=== PATIENT | female | born 1960 | race Caucasian/White ===

== ENCOUNTER 2023-12-29 06:56 | Inpatient (IN) | payer OTHER, SELFPAY ==
[2023-12-29] VITALS (20 sets, daily range): BP systolic 108–148; BP diastolic 51–78; PULSE 89–131; RESP 11–24; TEMP 36.9–37.3; O2SAT 75–95; BMI 24.7; BMI 26.9
--- NOTE | 2023-12-29 06:52 | ECG_ITS ---
APPROVED REPORT Exam: Resting ECG HR:131 bpm ECG Measurements Heart Rate 131 AXES ND 152 P 61 QRSd 79 QRS 47 QT 333 T 61 QTc 410 Conclusion SINUS TACHYCARDIA Some motion artifact noted Electronically signed by : EL OROZCO, 12/31/2023 02:07:57
--- NOTE | 2023-12-29 06:58 | CT_ITS ---
PROCEDURE INFORMATION: Exam: CTA Chest With Contrast Exam date and time: 12/29/2023 6:31 AM Age: 63 years old Clinical indication: Shortness of breath; Prior surgery; Surgery date: 1-6 months; Surgery type: Cervical spine; Additional info: Sob/tachy/hypoxic TECHNIQUE: Imaging protocol: Computed tomographic angiography of the chest with contrast. Exam focused on the arteries. 3D rendering (Not supervised by radiologist): MIP and/or 3D reconstructed images were created by the technologist. Radiation optimization: All CT scans at this facility use at least one of these dose optimization techniques: automated exposure control; mA and/or kV adjustment per patient size (includes targeted exams where dose is matched to clinical indication); or iterative reconstruction. Contrast material: ISOVUE 370; Contrast volume: 75 ml; Contrast route: INTRAVENOUS (IV); COMPARISON: No relevant prior studies available. FINDINGS: Limitations: Moderate motion artifact. Pulmonary arteries: Suboptimal pulmonary artery opacification. No definite vascular intraluminal filling defects to suggest large or central acute pulmonary embolism. Aorta: Atherosclerotic tortuosity and calcification of the thoracic aorta. No aortic aneurysm or dissection. Thyroid: Small bilateral parathyroid clips. Lungs: Bilateral multifocal pneumonia with more extensive right middle and lower lobe consolidation. Upper lung zone and biapical emphysema. Anatomic variant azygous lobe and fissure. Pleural spaces: Minimal right pleural effusion. No pneumothorax. Heart: Heart size upper limits of normal. Coronary arteries: Coronary artery calcifications. Lymph nodes: Small nonspecific mediastinal lymph nodes. Gallbladder and bile ducts: Dilated common hepatic duct and upstream intrahepatic ducts. Adrenal glands: Small circumscribed low-attenuation bilateral adrenal nodules or adenomas measuring up to 2 cm. Bones/joints: Cervicothoracic posterior fusion metallic hardware in place. Thoracic spondylosis and degenerative bony changes. Old posterior right 11th and 12th rib fractures. Soft tissues: No significant soft tissue abnormalities. IMPRESSION: 1. No definite vascular intraluminal filling defects to suggest large or central acute pulmonary embolism. A small or peripheral PE cannot be excluded. 2. Bilateral multifocal pneumonia with more extensive right middle and lower lobe consolidation. Consider short-term follow-up imaging to document clearance. 3. Upper lung zone and biapical emphysema. 4. Minimal right pleural effusion. 5. Atherosclerotic vascular disease including coronary artery disease. 6. Dilated common hepatic duct and upstream intrahepatic ducts. Recommend correlation with LFTs. COMMENTS: The presence of pulmonary emphysema on CT is an independent risk factor for lung cancer. In the absence of a history or active diagnosis of lung cancer, it is recommended that this patient with emphysema be evaluated for enrollment in a low dose CT lung cancer screening program.
--- NOTE | 2023-12-29 07:05 | PC.NURSE ---
Dr. Stringer at bedside
--- NOTE | 2023-12-29 07:06 | [facility].EDCP ---
Discharge Plan Disposition Chief Complaint: Chest Pain Clinical Impressions Clinical Impression: Severe sepsis, Acute hypoxemic respiratory failure, Multifocal pneumonia Discharge ED Provider: Luis Armando Stringer HPI General Chief Complaint: Chest Pain Stated Complaint: CP Time Seen by Provider: 12/29/23 06:58 History of Present Illness HPI narrative: Patient is a 63-year-old female with past medical history of COPD not on home oxygen, chronic back pain status post spinal surgery in August on multimodal pain control including oral morphine, tizanidine, hypertension, hyperlipidemia, GERD who presents to the emergency department for evaluation of shortness of breath. Patient has had intermittent cough over the last week or so, however this morning woke up with severe shortness of breath. Patient does not have any complaints of chest pain however does have discomfort upon deep inspiration. Due to persistent shortness of breath she presents here for continued evaluation. Patient had a fever Tmax 100.4 at home and took Tylenol. No abdominal pain, no dysuria. Related Data Allergies Allergy/AdvReac Type Severity Reaction Status Date / Time Sulfa (Sulfonamide Allergy Verified 12/29/23 07:12 Antibiotics) [facility] Disclaimer: The information contained in this section may have been updated after the patient was seen, as this information can be updated by other users. Social History Smoking Status: Never smoker alcohol intake: never current occupational status: previously employed Travel in the last 8 weeks: None ROS Obtained: Yes Systems reviewed as appropriate & no additional complaints except as documented Physical Exam General General appearance: alert and in no apparent distress Head Head exam: atraumatic and normocephalic Eye Eye exam: Present EOMI ENT ENT exam: Present mucous membranes moist Neck Neck exam: Present normal inspection Chest Chest inspection: Present normal inspection and symmetric chest wall rise Respiratory Respiratory exam: Present normal lung sounds bilaterally and prolonged expiratory phase (Tachypnea); Absent respiratory distress Cardiovascular Cardiovascular exam: Present regular rate and normal rhythm Abdominal Exam Abdominal exam: Present soft; Absent tenderness Extremities Exam Extremities exam: Present normal inspection Neurological Exam Neurological exam: Present alert Psychiatric Psychiatric exam: Present normal affect Skin Skin exam: Present warm and dry HEART Score HEART Score HEART Score assessment performed?: Yes History (anamnesis): Slightly suspicious ECG: Normal Age: >65 years Risk factors: 3 or more risk factors Troponin: </= normal limit HEART Score: 4 Critical Care Critical Care Time Critical Care Time: Yes Attestation: On 12/29/23, the high probability of a clinically significant, sudden or life threatening deterioration of the following system(s) required my full and direct attention, intervention and personal management. The time I documented below is in addition to time spent performing reported procedures but includes the following listed in this critical care notation. Total Time Total Critical Care Time: 35 Medical Decision Making Dieudonne Inquiry Pt receiving controlled substance: No Vital Signs Vital Signs: 12/29/23 07:05 12/29/23 07:14 12/29/23 07:16 Temperature 98.4 F Temperature Source Oral Pulse Rate 117 H Pulse Rate [Right Radial] 131 H Respiratory Rate 24 18 Blood Pressure 121/57 L Blood Pressure [Left Arm] 148/70 H Blood Pressure Mean [Left Arm] 96 Blood Pressure Source [Left Arm] Automatic Cuff Blood Pressure Position [Left Arm] Sitting 02 Sat by Pulse Oximetry 75 L 89 L 89 L Oxygen Delivery Method Room Air Nasal Cannula Nasal Cannula Oxygen Flow Rate (LPM) 4 5 12/29/23 07:48 12/29/23 08:00 12/29/23 08:30 Temperature Temperature Source Pulse Rate 106 H 102 H 116 H Pulse Rate [Right Radial] Respiratory Rate 19 20 21 Blood Pressure 127/75 108/51 L 119/72 Blood Pressure [Left Arm] Blood Pressure Mean [Left Arm] Blood Pressure Source [Left Arm] Blood Pressure Position [Left Arm] 02 Sat by Pulse Oximetry 88 L 95 89 L Oxygen Delivery Method Nasal Cannula Nasal Cannula Nasal Cannula Oxygen Flow Rate (LPM) 4 6 6 12/29/23 09:00 Temperature Temperature Source Pulse Rate 112 H Pulse Rate [Right Radial] Respiratory Rate 23 Blood Pressure 116/61 Blood Pressure [Left Arm] Blood Pressure Mean [Left Arm] Blood Pressure Source [Left Arm] Blood Pressure Position [Left Arm] 02 Sat by Pulse Oximetry 87 L Oxygen Delivery Method Nasal Cannula Oxygen Flow Rate (LPM) 6 Lab Data Labs: Lab Results 12/29/23 07:00: WBC 10.5, RBC 4.39, Hgb 10.8 L, Hct 35.8 L, MCV 81.5, MCH 24.7 L, MCHC 30.3 L, RDW 15.6, Plt Count 360, MPV 8.6, Neut % (Auto) 84.0 H, Lymph % (Auto) 10.6, [place] % (Auto) 3.6, Eos % (Auto) 1.2, Baso % (Auto) 0.7, Neut # (Auto) 8.8 H, Lymph # (Auto) 1.1, [place] # (Auto) 0.4, Eos # (Auto) 0.1, Baso # (Auto) 0.1, Sodium 144, Potassium 4.1, Chloride 110 H, Carbon Dioxide 25, Anion Gap 13.1, BUN 25 H, Creatinine 1.20 H, Estimated Creat Clear 47, Estimated GFR 45 L, Est GFR ( Amer) 55 L, Glucose 104 H, Lactate 2.0, Calcium 8.6, Total Bilirubin 0.3, AST 26, ALT 17, Alkaline Phosphatase 77, Troponin I < 0.01, Total Protein 6.8, Albumin 4.3, Globulin 2.5, Albumin/Globulin Ratio 1.7 12/29/23 07:05: VBG pH 7.34, VBG pCO2 40.8, VBG pO2 40.6 H, VBG HCO3 21.5 L, VBG Total CO2 22.7 L, VBG O2 Saturation 70.2 H, VBG Base Excess -4.3 L 12/29/23 07:20: SARS-CoV-2 (PCR) Not detected, Influenza A Untype (PCR) Not detected, Influenza Type B (PCR) Not detected 12/29/23 07:30: VBG Lactic Acid 2.9 H 12/29/23 07:00 12/29/23 07:00 Response Orders (Tests/Meds): ED MEDICATIONS Generic Name Dose Route Start Last Admin Trade Name Freq PRN Reason Stop Dose Admin Acetaminophen 650 mg 12/29/23 08:36 Acetaminophen 325mg Tab PO 01/28/24 08:35 Q4HP PRN Fever or Mild Pain (1-3) Heparin Sodium (Porcine) 5,000 unit 12/29/23 08:45 Heparin Sodium 5,000 Unit/Ml Vial SQ 01/28/24 08:44 Q8H SHAI Ceftriaxone Sodium 1 gm/ 50 mls @ 100 mls/hr 12/29/23 07:00 12/29/23 08:02 Sodium Chloride IV 01/08/24 06:59 100 mls/hr Q24H SHAI Administration Lactated Ringer's 1,000 mls @ 750 mls/hr 12/29/23 07:30 12/29/23 07:15 Lactated Ringer's 1000 Ml Bag IV 12/29/23 09:29 750 mls/hr .Q1H20M SHAI Administration Vancomycin HCl 1,000 mg/ 250 mls @ 125 mls/hr 12/29/23 08:45 Sodium Chloride IV 01/08/24 08:44 Q24H SHAI Morphine Sulfate 30 mg 12/29/23 09:00 Morphine 30mg Extended Release Tab PO 01/28/24 08:59 BID SHAI Polyethylene Glycol 17 gm 12/29/23 09:00 Polyethylene Glycol 3350 17 Gm Packet PO 01/28/24 08:59 DAILY SHAI Senna/Docusate Sodium 1 tab 12/29/23 09:00 Sennosides 8.6mg/Docusate 50mg Tablet PO 01/28/24 08:59 BID SHAI Discontinued Medications Generic Name Dose Route Start Last Admin Trade Name Freq PRN Reason Stop Dose Admin Albuterol/Ipratropium 3 ml 12/29/23 07:36 12/29/23 08:03 Ipratropium/Albuterol 3 Ml Neb IH 12/29/23 07:37 3 ml ONCE ONE Administration Azithromycin 500 mg/ Sodium 250 mls @ 250 mls/hr 12/29/23 07:30 12/29/23 08:42 Chloride IV 12/29/23 08:29 250 mls/hr ONCE ONE Administration Iopamidol 75 ml 12/29/23 07:42 12/29/23 07:43 Iopamidol-370 (76%);100ml Bottle IV 12/29/23 07:43 75 ml ONCE ONE Administration Methylprednisolone Sodium Succinate 125 mg 12/29/23 07:30 12/29/23 07:15 Methylprednisolone Sod Succ 125mg Vial IV 12/29/23 07:31 125 mg ONCE ONE Administration Miscellaneous 1 each 12/29/23 08:45 Vancomycin Consult Request NOTAPPLIC 01/28/24 08:44 [facility]SULT [facility] Morphine Sulfate 4 mg 12/29/23 08:08 12/29/23 08:13 Morphine 4mg/Ml Syringe IV 12/29/23 08:09 4 mg ONCE ONE Administration Sodium Chloride 10 ml 12/29/23 07:42 12/29/23 07:43 Sodium Chloride 0.9% 10ml Syr (Rad Only) IV 12/29/23 07:43 10 ml ONCE ONE Administration Sodium Chloride 40 ml 12/29/23 07:42 12/29/23 07:42 0.9 % Sodium Chloride 50 Ml Vial IV 12/29/23 07:43 40 ml ONCE ONE Administration ORDERS Category Date Time Status CTA Chest [CT angio chest PE protocol] Stat Cat Scan 12/29/23 06:58 Completed POCUS Point of Care (ER Only) Stat Exams 12/29/23 07:16 Ordered CBC w/Auto Diff [Complete Blood Count Auto Diff] Stat Lab 12/29/23 07:00 Completed CMP [Comprehensive Metabolic Panel] Stat Lab 12/29/23 07:00 Completed Complete Blood Count Auto Diff AMLAB Lab 12/30/23 06:00 Ordered Comprehensive Metabolic Panel AMLAB Lab 12/30/23 06:00 Ordered Lactate Venous Stat Lab 12/29/23 07:30 Completed Lactic Acid Stat Lab 12/29/23 07:00 Completed Magnesium AMLAB Lab 12/30/23 06:00 Ordered Rapid PCR Covid and Flu A/B Stat Lab 12/29/23 07:20 Completed Trop I [Troponin I] Stat Lab 12/29/23 07:00 Completed Troponin I Q3H Lab 12/29/23 10:00 Ordered Troponin I Q3H Lab 12/29/23 13:00 Ordered Blood Culture Stat Micro 12/29/23 07:52 Received VBG [Venous Blood Gas] Stat RT 12/29/23 07:05 Completed ECG Data Tracing #1: ECG Narrative: Independently interpreted by me, rate is 131, rhythm is regular, axis is normal, no ST elevation in anatomical contiguous leads, QTc 410. Sinus tachycardia. MDM Narrative Medical Decision Narrative: In summary patient is a 63-year-old female with past medical history described above who presents to the emergency department for evaluation of shortness of breath. Patient is hemodynamically stable upon arrival, significant tachycardia, hypoxic requiring 5 L nasal cannula for saturations greater than 88%, afebrile status post Tylenol administration at home. Differential diagnosis includes sepsis secondary to pneumonia, sepsis secondary to bacteremia, pulmonary embolism, among others. Patient does have good air movement disproportionate to her degree of hypoxia, no significant wheezing. She has no reported history of heart failure. Initial workup will be conducted with hematologic labs, EKG, emergent CT pulmonary embolism protocol. Initial interventions include ceftriaxone, azithromycin, sepsis crystalloid bolus with lactated Ringer's. Initial workup reviewed by me, hematologic labs with no significant leukocytosis, elevated lactate, normal blood pH, slightly elevated creatinine. Initial troponin below detectable limit. CT imaging informally interpreted by me, no saddle embolism, there is motion artifact, right-sided pneumonia, some groundglass opacities in the left lower lobe diffuse emphysema. CT imaging formal read no proximal pulmonary embolism, multifocal pneumonia, minimal right pleural effusion, incidental dilated common hepatic duct. Patient does not have cholestatic pattern or abdominal pain that warrants further workup or imaging at this time. Given sepsis secondary pneumonia with acute hypoxic respiratory failure the case was discussed with hospital medicine regarding management patient will be admitted to their service for continued evaluation at this time.
--- NOTE | 2023-12-29 07:10 | PC.NURSE ---
Radiology notified Dr. Stringer wants to forego waiting on labs prior to ct scan
[2023-12-29] MEDS: METHYLPREDNISOLONE SOD SUCC 125MG VIAL 125 MG IV (07:15)
[2023-12-29] MEDS: LACTATED RINGERS 1000ML 1,000 ML 750 ML IV (07:15)
[2023-12-29 07:20] LABS: Basophils # 0.1 K/mm3 (0-0.2); Basophils % 0.7 % (0.1-2.0); Eosinophils # 0.1 K/mm3 (0.0-0.4); Eosinophils % 1.2 % (0.1-12.0); Hematocrit 35.8 % (37.0-47.0); Hemoglobin 10.8 g/dL (12.2-16.2); Lymphocytes # 1.1 K/mm3 (0.7-4.5); Lymphocytes % 10.6 % (10-50); Mean Corpuscular HGB Conc 30.3 g/dL (31.8-35.4); Mean Corpuscular Hemoglobin 24.7 pg (27.0-31.2); Mean Corpuscular Volume 81.5 fl (81-99); Mean Platelet Volume 8.6 fl (7.4-10.4); Monocytes # 0.4 K/mm3 (0.1-1.0); Monocytes % 3.6 % (1.7-9.3); Neutrophils # 8.8 K/mm3 (1.8-7.8); Platelet Count 360 K/mm3 (142-424); Red Blood Count 4.39 M/mm3 (4.20-5.40); Red Cell Distribution Width 15.6 % (11.5-17.5); White Blood Count 10.5 K/mm3 (4.8-10.8)
--- NOTE | 2023-12-29 07:24 | PC.NURSE ---
Respiratory notified of VBG order, blood in lab
[2023-12-29 07:26] LABS: Coronavirus 19, PCR Not Detected (NotDetected); Influenza A, PCR Not Detected (NotDetected); Influenza B, PCR Not Detected (NotDetected)
[2023-12-29 07:26] LABS: Alanine Aminotransferase 17 U/L (12-78); Albumin Level 4.3 g/dl (3.5-5.0); Albumin/Globulin Ratio 1.7 (1.1-1.8); Alkaline Phosphatase 77 U/L (38-126); Anion Gap 13.1 mEq/L (5-15); Aspartate Amino Transferase 26 U/L (14-36); Bilirubin,Total 0.3 mg/dl (0.2-1.3); Blood Urea Nitrogen 25 mg/dl (7-17); Calcium 8.6 mg/dl (8.4-10.2); Carbon Dioxide 25 mmol/L (22.0-30.0); Chloride 110 mmol/L (98-107); Creatinine Clearance Estimated 47 mL/min (50-200); Estimated Glomerular Filt Rate 45 ml/min (>60); GFR (African American) 55 ML/MIN (>60); Globulin 2.5 g/dL (1.3-3.2); Glucose 104 mg/dl (74-100); Potassium 4.1 mmoL/L (3.5-5.1); Sodium 144 mmol/L (136-145); Total Protein,Serum 6.8 g/dl (6.3-8.2)
[2023-12-29 07:30] LABS: VBG Base Excess -4.3 mmol/L (-2.4-2.3); VBG HCO3 21.5 mmol/L (23-30); VBG Oxygen Saturation 70.2 % (50-70); VBG PCO2 40.8 mmol/L (35-51); VBG PH 7.34 mmol/L (7.31-7.41); VBG PO2 40.6 mmol/L (28-40); VBG Total CO2 22.7 mmol/L (23-27)
[2023-12-29 07:31] LABS: Lactate Venous 2.9 mmol/L (0.4-2.0)
[2023-12-29 07:38] LABS: Troponin I < 0.01 ng/ml (0.00-0.034)
[2023-12-29] MEDS: 0.9 % SODIUM CHLORIDE 50 ML VIAL 40 ML IV (07:42)
[2023-12-29] MEDS: SODIUM CHLORIDE 0.9% 10ML SYR (RAD ONLY) 10 ML IV (07:43)
[2023-12-29] MEDS: IOPAMIDOL-370 (76%);100ML BOTTLE 75 ML IV (07:43)
[2023-12-29] MEDS: CEFTRIAXONE 1 GM 1 GM in 0.9 % SODIUM CHLORIDE 50 ML IV (08:02)
[2023-12-29] MEDS: IPRATROPIUM/ALBUTEROL 3 ML NEB IH ×3 (08:03→22:55)
[2023-12-29] MEDS: MORPHINE 4MG/ML SYRINGE 4 MG IV (08:13)
--- NOTE | 2023-12-29 08:23 | PC.NURSE ---
pts oxygen is currently on 6lnc due to low saturation of 83% now is 88%
--- NOTE | 2023-12-29 08:30 | PC.NURSE ---
Pt provided with breakfast tray
--- NOTE | 2023-12-29 08:33 | PC.NURSE ---
DR GLORIA SPEAKING WITH DR PURDY FOR ADMISSION
--- NOTE | 2023-12-29 08:36 | PC.NURSE ---
[facility] NOTIFIED OF ADMISSION. NO BEDS AVAILABLE, PT WILL BOARD IN ED
--- NOTE | 2023-12-29 08:36 | EXP.HP ---
History of Present Illness *Admission Date: 12/29/23 *Reason for visit:: shortness of breath *History of present illness: Ms. Antonio is a 63-year-old female with history of hypertension, chronic back pain, chronic opiate therapy and COPD.. She presented to the ER with complaint of shortness of breath and fever. States that she is post cervical spinal surgery in August and has surgery on thoracic and lumbar spine pending for January. She was worried about her breathing and fever and came into the ER for evaluation because she wants to be healthy for surgery next month. States that she has had an intermittent cough for the past week or so. Denies any nausea or vomiting. Denies any chest pain. Does not use oxygen at home. Reports that things worsened acutely however when she woke up this morning with severe shortness of breath and noted to have a fever at home to 100.4. On evaluation in the ER, found to be hypoxic necessitating supplemental oxygen. Currently on 4 to 5 L. Also found to be tachycardic, tachypneic, labs concerning for elevated white cell count. Chest imaging with finding of right lower lobe consolidation and airspace disease. Initiated on antibiotics for community-acquired pneumonia. Medicine consulted for admission and further management. For the time of my evaluation, patient is feeling somewhat better. She has had fluids and IV antibiotics. Cultures were obtained. Sats are in the low 90s on 5 L. Alert and oriented x 4. Pain stable. Denies any weakness or dizziness. [facility] Disclaimer: The information contained in this section may have been updated after the patient was seen, as this information can be updated by other users. Medical History (Updated 12/29/23 @ 16:46 by Parth Lozano MD) Hypertension Chronically on opiate therapy Emphysema/COPD Family History (Updated 12/29/23 @ 15:15 by Liz Brewer RN) Other Family history of cancer Social History (Updated 12/29/23 @ 15:16 by Liz Brewer RN) Smoking Status: Former smoker alcohol intake: never current occupational status: previously employed Travel in the last 8 weeks: None Meds Home Medications and Allergies Home Medications Medication Instructions Recorded Confirmed Type amlodipine 10 mg tablet 10 mg PO DAILY High Blood Pressure 12/29/23 12/29/23 History esomeprazole magnesium 40 mg 40 mg PO TID Acid Reflux 12/29/23 12/29/23 History capsule,delayed release furosemide 20 mg tablet 20 mg PO DAILYP PRN Fluid 12/29/23 12/29/23 History hydroxyzine HCl 10 mg tablet 10 mg PO HSP PRN Anxiety 12/29/23 12/29/23 History lisinopril 20 mg tablet 20 mg PO DAILY High Blood Pressure 12/29/23 12/29/23 History morphine 30 mg tablet,extended 30 mg PO Q12HP PRN Moderate Pain 12/29/23 12/29/23 History release (Scale Score 5-6) simvastatin 20 mg tablet 20 mg PO HS 12/29/23 12/29/23 History trazodone 50 mg tablet 100 mg PO HS Insomnia 12/29/23 12/29/23 History New Prescriptions to Start Prescriptions: Allergies Allergy/AdvReac Type Severity Reaction Status Date / Time Sulfa (Sulfonamide Allergy Verified 12/29/23 07:12 Antibiotics) Exam Data for Last 24 hours Vital signs and Labs for Last 24 Hours: Temp Pulse Resp BP Pulse Ox O2 Del Method O2 Flow Rate 98.4 F 102 H 8 L 108/51 L 95 Nasal Cannula 6 12/29/23 07:05 12/29/23 08:00 12/29/23 08:00 12/29/23 08:00 12/29/23 08:00 12/29/23 08:00 12/29/23 08:00 Laboratory Results - last 24 hr 12/29/23 07:00: WBC 10.5, RBC 4.39, Hgb 10.8 L, Hct 35.8 L, MCV 81.5, MCH 24.7 L, MCHC 30.3 L, RDW 15.6, Plt Count 360, MPV 8.6, Neut % (Auto) 84.0 H, Lymph % (Auto) 10.6, [place] % (Auto) 3.6, Eos % (Auto) 1.2, Baso % (Auto) 0.7, Neut # (Auto) 8.8 H, Lymph # (Auto) 1.1, [place] # (Auto) 0.4, Eos # (Auto) 0.1, Baso # (Auto) 0.1, Sodium 144, Potassium 4.1, Chloride 110 H, Carbon Dioxide 25, Anion Gap 13.1, BUN 25 H, Creatinine 1.20 H, Estimated Creat Clear 47, Estimated GFR 45 L, Est GFR ( Amer) 55 L, Glucose 104 H, Lactate 2.0, Calcium 8.6, Total Bilirubin 0.3, AST 26, ALT 17, Alkaline Phosphatase 77, Troponin I < 0.01, Total Protein 6.8, Albumin 4.3, Globulin 2.5, Albumin/Globulin Ratio 1.7 12/29/23 07:05: VBG pH 7.34, VBG pCO2 40.8, VBG pO2 40.6 H, VBG HCO3 21.5 L, VBG Total CO2 22.7 L, VBG O2 Saturation 70.2 H, VBG Base Excess -4.3 L 12/29/23 07:20: SARS-CoV-2 (PCR) Not detected, Influenza A Untype (PCR) Not detected, Influenza Type B (PCR) Not detected 12/29/23 07:30: VBG Lactic Acid 2.9 H I & O for Last 24 hours: Intake & Output 12/26/23 12/27/23 12/28/23 12/30/23 23:59 23:59 23:59 00:59 Weight 63.503 kg Constitutional Constitutional: no acute distress, average body habitus and cooperative Comments: Ill-appearing *Routine HEENT Exam Head: Present normocephalic Eye: Present EOMI and PERRL ENT: Present mucous membranes moist *Routine Neck Exam Neck: Present supple; Absent lymphadenopathy *Routine Respiratory Exam Respiratory: Present crackles (Diffusely in posterior lung marte but worse in right lower lung field), diminished air movement and normal respiratory effort; Absent rhonchi or wheezes *Routine Cardiovascular Exam Cardiovascular: Present tachycardia; Absent murmur *Routine Abdominal Exam Abdominal: Present soft and normoactive bowel sounds; Absent tenderness *Routine Rectal Exam Rectal:: deferred *Routine Genitalia Exam Genitalia:: deferred *Routine Extremities Exam Extremities: Absent cyanosis, clubbing or edema *Routine Skin Exam Skin: Present warm; Absent rash *Routine Neurological Exam Neurological: Present alert, oriented X3 and moving all extremities; Absent altered mental status Assessment and Plan *Assessment and plan (1) Severe sepsis: Status: Acute Category: Medical Code(s): A41.9 - Sepsis, unspecified organism; R65.20 - Severe sepsis without septic shock (2) Acute hypoxemic respiratory failure: Status: Acute Category: Medical Code(s): J96.01 - Acute respiratory failure with hypoxia (3) Multifocal pneumonia: Status: Acute Category: Medical Code(s): J18.9 - Pneumonia, unspecified organism (4) Chronically on opiate therapy: Status: Acute Category: Medical Code(s): Z79.891 - jail (current) use of opiate analgesic (5) Hypertension: Status: Chronic Category: Medical Code(s): I10 - Essential (primary) hypertension (6) Emphysema/COPD: Status: Chronic Category: Medical Code(s): J43.9 - Emphysema, unspecified Plan 63-year-old female meeting severe sepsis criteria with tachypnea, tachycardia, chest imaging with multifocal pneumonia. Workup in the ER concerning for new oxygen requirement of 6 L. Acute hypoxemic respiratory failure. Discussed case with ER physician, request admission for treatment of her severe sepsis, IV antibiotics, and further management. Medicine agreed to admit. Continue IV antibiotics with broad-spectrum vancomycin, ceftriaxone, azithromycin. Given location of pneumonia predominantly right lower lobe, concern for aspiration component. Will consult pulmonology to get them involved tomorrow morning. Necessitating inpatient admission. PSI/port score 115 (Age 63, female, pulse 130 on presentation, pH 7.34, partial pressure oxygen 48, pleural effusion on chest imaging), class IV risk. Problems addressed as follows: Severe sepsis Acute hypoxemic respiratory failure Multifocal pneumonia -Supplemental oxygen for goal sats greater 90%, currently on 6 L -Personally reviewed chest imaging with CT, multifocal pneumonia, right lower lung/lobe with significant airspace disease. -Received azithromycin and ceftriaxone in the ER, continue broad-spectrum antibiotics with ceftriaxone and vancomycin. Given right lower lobe consolidation, concern for component of aspiration. -Pulmonology consulted, appreciate their recommendations -DuoNebs every 6 hours scheduled -Blood cultures pending - White cell count normal at 10.5 neutrophil predominance, 84% neutrophils. -Tylenol 650 mg as needed every 6 hours for fever pain -Status post IV fluids in the ER. Mild DIANE, creatinine 1.2, BUN greater than 20. Monitor with repeat CBC, CMP, magnesium ordered for the morning. Anticipate improvement with IV fluid resuscitation. Hypertension: Holding amlodipine, resume lisinopril 20 mg daily. Holding simvastatin nightly. Holding diuretic GERD: Continue home PPI Anxiety: New home hydroxyzine nightly as needed and trazodone nightly for insomnia. Chronic pain and chronic opiate therapy -Continue home extended release morphine 30 mg twice daily. Monitor for sedation and respiratory suppression. Full code Regular diet Heparin subcu 3 times daily
[2023-12-29] MEDS: AZITHROMYCIN 500 MG in 0.9 % SODIUM CHLORIDE 250 ML 250 MG IV (08:42)
--- NOTE | 2023-12-29 08:46 | EXP.PHA.CONS ---
Pharmacy Consult Date: 12/29/23 Time: 08:47 Referring provider: DR PURDY Reason for Consult:: VANCOMYCIN DOSING CONSULT Allergies Allergy/AdvReac Type Severity Reaction Status Date / Time Sulfa (Sulfonamide Allergy Verified 12/29/23 07:12 Antibiotics) New Prescriptions to Start Prescriptions: Height: 1.6 m Weight: 63.503 kg Laboratory Results:: Laboratory Results - last 24 hr 12/29/23 07:00: WBC 10.5, RBC 4.39, Hgb 10.8 L, Hct 35.8 L, MCV 81.5, MCH 24.7 L, MCHC 30.3 L, RDW 15.6, Plt Count 360, MPV 8.6, Neut % (Auto) 84.0 H, Lymph % (Auto) 10.6, [place] % (Auto) 3.6, Eos % (Auto) 1.2, Baso % (Auto) 0.7, Neut # (Auto) 8.8 H, Lymph # (Auto) 1.1, [place] # (Auto) 0.4, Eos # (Auto) 0.1, Baso # (Auto) 0.1, Sodium 144, Potassium 4.1, Chloride 110 H, Carbon Dioxide 25, Anion Gap 13.1, BUN 25 H, Creatinine 1.20 H, Estimated Creat Clear 47, Estimated GFR 45 L, Est GFR ( Amer) 55 L, Glucose 104 H, Lactate 2.0, Calcium 8.6, Total Bilirubin 0.3, AST 26, ALT 17, Alkaline Phosphatase 77, Troponin I < 0.01, Total Protein 6.8, Albumin 4.3, Globulin 2.5, Albumin/Globulin Ratio 1.7 12/29/23 07:05: VBG pH 7.34, VBG pCO2 40.8, VBG pO2 40.6 H, VBG HCO3 21.5 L, VBG Total CO2 22.7 L, VBG O2 Saturation 70.2 H, VBG Base Excess -4.3 L 12/29/23 07:20: SARS-CoV-2 (PCR) Not detected, Influenza A Untype (PCR) Not detected, Influenza Type B (PCR) Not detected 12/29/23 07:30: VBG Lactic Acid 2.9 H Assessment and Plan Assessment and plan all Dx Assessment and Plan for all problems:: Pharmacokinetic dosing service Objective: Age: 63 yo Serum creatinine: 1.2 mg/dL Height: 63.0 Inches Weight (kg): 63.503 Diagnosis: PNEUMONIA Assessment: IBW (kg): 52.40 Dosing wt(kg): 63.503 Estimated Creatinine clearance (ml/min): 38.7 CRCL method: Cockcroft and Gault using ibw(default). Drug selected: Vancomycin Vd (liters): 47.6 (factor used: 0.75 L/kg) Leandro (hr-1): 0.037 Half life (hrs): 18.73 CLvanco=?? 1.761 L/hr Recommended dose: 1000 mg Interval: 24 hrs Infusion time (hrs): 2.0 Predicted peak (mcg/mL): 34.4 Predicted trough (mcg/mL): 15.24 Total body weight is being used for vancomycin dosing. Recommendations: Give Vancomycin 1000 mg q 24 hrs with an expected Cpeak of 34.4 mcg/ml and an expected Ctrough of 15.24 mcg/ml AUC 0-24 /CONNIE Data: CONNIE 0.5 mcg/mL:?? AUC/CONNIE:? 1135.7 CONNIE 1.0 mcg/mL:?? AUC/CONNIE:? 567.9 --------- CONNIE 1.5 mcg/mL:?? AUC/CONNIE:? 378.6 CONNIE 2.0 mcg/mL:?? AUC/CONNIE:? 283.9 Thank you for the consult
[2023-12-29] MEDS: VANCOMYCIN CONSULT REQUEST 1 EACH NOTAPPLIC (08:59)
--- NOTE | 2023-12-29 09:01 | PC.NURSE ---
ASSISTED PT TO THE BATHROOM VIA O2 AND WHEELCHAIR AND TOLERATED WELL.
[2023-12-29] MEDS: MORPHINE 30MG EXTENDED RELEASE TAB 30 MG PO ×2 (10:59→20:40)
[2023-12-29] MEDS: POLYETHYLENE GLYCOL 3350 17 GM PACKET PO (11:00)
[2023-12-29] MEDS: SENNOSIDES 8.6MG/DOCUSATE 50MG TABLET 1 TAB PO ×2 (11:00→20:40)
[2023-12-29] MEDS: HEPARIN SODIUM 5,000 UNIT/ML VIAL 5000 UNIT SQ ×2 (11:07→16:52)
[2023-12-29] MEDS: VANCOMYCIN HCL 1,000 MG in 0.9 % SODIUM CHLORIDE 250 ML 125 MG IV (11:07)
[2023-12-29 11:37] LABS: Troponin I < 0.01 ng/ml (0.00-0.034)
[2023-12-29 11:48] LABS: Lactate Venous 1.6 mmol/L (0.4-2.0)
--- NOTE | 2023-12-29 12:03 | PC.NURSE ---
PT PROVIDED BEDSIDE COMMODE
--- NOTE | 2023-12-29 13:46 | PC.NURSE ---
Pt assisted to bedside toilet. No other needs at this time. Call light remains within reach.
--- NOTE | 2023-12-29 14:16 | PC.NURSE ---
DR PURDY AT BEDSIDE
--- NOTE | 2023-12-29 14:25 | PC.NURSE ---
Gave report to Nichole FLORES on Med/Surg. EVS is STAT cleaning room at this time.
--- NOTE | 2023-12-29 14:32 | PC.NURSE ---
Med/Surg called to say the room is clean and ready. B Osman RN will take pt to 210 and complete her admission.
--- NOTE | 2023-12-29 14:33 | PC.NURSE ---
pt to floor per RN
--- NOTE | 2023-12-29 14:36 | PC.NURSE ---
I rounded on pt, she stated she was doing ok and had no requests.
[2023-12-29] MEDS: TRAZODONE 50MG TABLET 100 MG PO (20:41)
[2023-12-29] MEDS: ACETAMINOPHEN 325MG TAB 650 MG PO (22:38)
[2023-12-30] VITALS (11 sets, daily range): BP systolic 113–145; BP diastolic 64–70; PULSE 75–101; RESP 18–20; TEMP 36.7–37.1; O2SAT 91–95; BMI 26.8
[2023-12-30] MEDS: HEPARIN SODIUM 5,000 UNIT/ML VIAL 5000 UNIT SQ ×3 (00:17→17:23)
--- NOTE | 2023-12-30 03:00 | PC.NURSE ---
Pt is alert and oriented x4 and currently on 4.5L of O2 and sating 90-94%. Pt has C/O pain this shift and has been treated per MAR. Pt becomes short of breath when toileting but recovers shortly after. KIM Marie contacted at beginning of shift as daughter requested for better explanation of treatment and DX. Pt has slept intermittently and denies other needs
[2023-12-30] MEDS: CEFTRIAXONE 1 GM 1 GM in 0.9 % SODIUM CHLORIDE 50 ML IV (06:03)
[2023-12-30] MEDS: IPRATROPIUM/ALBUTEROL 3 ML NEB IH ×4 (06:54→23:33)
[2023-12-30 07:15] LABS: Monocytes # 0.6 K/mm3 (0.1-1.0); Red Blood Count 3.82 M/mm3 (4.20-5.40)
[2023-12-30 07:23] LABS: Basophils % 0.2 % (0.1-2.0); Hematocrit 30.6 % (37.0-47.0); Lymphocytes # 1.8 K/mm3 (0.7-4.5); Lymphocytes % 10.1 % (10-50); Mean Corpuscular HGB Conc 31.2 g/dL (31.8-35.4); Mean Corpuscular Volume 80.1 fl (81-99); Mean Platelet Volume 9.7 fl (7.4-10.4); Neutrophils # 15.7 K/mm3 (1.8-7.8); Neutrophils % 86.7 % (37.0-80.0); Platelet Count 279 K/mm3 (142-424); Red Cell Distribution Width 15.7 % (11.5-17.5); White Blood Count 18.1 K/mm3 (4.8-10.8)
[2023-12-30 07:31] LABS: Alanine Aminotransferase 15 U/L (12-78); Albumin Level 3.5 g/dl (3.5-5.0); Albumin/Globulin Ratio 1.4 (1.1-1.8); Alkaline Phosphatase 57 U/L (38-126); Anion Gap 9.9 mEq/L (5-15); Aspartate Amino Transferase 23 U/L (14-36); Bilirubin,Total 0.4 mg/dl (0.2-1.3); Blood Urea Nitrogen 22 mg/dl (7-17); Calcium 8.4 mg/dl (8.4-10.2); Carbon Dioxide 27 mmol/L (22.0-30.0); Chloride 108 mmol/L (98-107); Creatinine Clearance Estimated 61 mL/min (50-200); Estimated Glomerular Filt Rate 63 ml/min (>60); GFR (African American) 76 ML/MIN (>60); Globulin 2.5 g/dL (1.3-3.2); Glucose 100 mg/dl (74-100); Magnesium 2.1 mg/dl (1.6-2.3); Potassium 3.9 mmoL/L (3.5-5.1); Sodium 141 mmol/L (136-145)
[2023-12-30 07:33] LABS: Hemoglobin 9.6 g/dL (12.2-16.2)
[2023-12-30 07:34] LABS: MANUAL DIFFERENTIAL MANUAL DIFFERENTIAL (MANUAL DIFF)
[2023-12-30 08:19] LABS: Lymphocytes % 12 % (10-50); Monocytes % 2 % (2-9); Neutrophils % 84 % (42-76); Total Cells Counted 100
[2023-12-30 08:20] LABS: Hypochromasia 1+; Microcytosis 1+; Ovalocytes 1+; Platelet Estimate Normal
[2023-12-30] MEDS: VANCOMYCIN HCL 1,000 MG in 0.9 % SODIUM CHLORIDE 250 ML 125 MG IV (08:32)
[2023-12-30] MEDS: MORPHINE 30MG EXTENDED RELEASE TAB 30 MG PO ×2 (08:32→21:35)
[2023-12-30] MEDS: PANTOPRAZOLE 40MG TABLET 40 MG PO ×2 (08:33→21:35)
[2023-12-30] MEDS: POLYETHYLENE GLYCOL 3350 17 GM PACKET PO (08:33)
[2023-12-30] MEDS: LISINOPRIL 20MG TABLET 20 MG PO (08:33)
[2023-12-30] MEDS: SENNOSIDES 8.6MG/DOCUSATE 50MG TABLET 1 TAB PO ×2 (08:33→21:35)
[2023-12-30] MEDS: ACETAMINOPHEN 325MG TAB 650 MG PO ×2 (08:39→13:17)
--- NOTE | 2023-12-30 09:55 | P.CONS_ITS ---
History of Present Illness History of present illness: Ms. Antonio 63-year-old female greater than [id number] smoking carries a diagnosis of COPD at baseline using inhalers , do not remember the name of the inhaler , presented to the ER with worsening respiratory distress and febrile episodes New oxygen requirements and pulmonary was called for further evaluation and management. [facility] Disclaimer: The information contained in this section may have been updated after the patient was seen, as this information can be updated by other users. Medical History (Updated 12/29/23 @ 16:46 by Parth Lozano MD) Hypertension Chronically on opiate therapy Emphysema/COPD Family History (Updated 12/29/23 @ 15:15 by Liz Brewer, SANDRA) Other Family history of cancer Social History (Updated 12/29/23 @ 18:18 by Yamile Anderson, SANDRA) Smoking Status: Former smoker alcohol intake: never current occupational status: previously employed Travel in the last 8 weeks: None Review of Systems Constitutional Constitutional: Reports anorexia, Reports body ache(s) and Reports fatigue Eyes Eyes: Denies eye discharge, Denies dry eyes, Denies irritation and Denies itchy eyes ENT Ears, Nose, Mouth, and Throat: Denies epistaxis, Denies facial pain, Denies lip swelling and Denies throat swelling *Cardiovascular Cardiovascular: Reports dyspnea and Reports dyspnea on exertion *Respiratory Respiratory: Reports chest congestion, Reports cough, Reports dyspnea, Reports dyspnea on exertion, Reports excessive phlegm production, Denies hemoptysis, Denies pain on inspiration, Denies pain with cough and Reports wheezing *Gastrointestinal Gastrointestinal: Denies abdominal pain, Denies belching and Denies cramping *Musculoskeletal Musculoskeletal: Reports back pain, Reports myalgias and Reports other (No small joint swelling or Pain) Psychiatric Psychiatric: Denies homicidal ideation and Denies suicidal ideation Endocrine Endocrine: Reports fatigue and Denies heat intolerance Hematologic/Lymphatic Hematologic/Lymphatic: Denies easy bleeding and Denies lymphadenopathy Allergic/Immunologic Allergic/Immunologic: Denies itchy eyes, Denies lip swelling, Denies throat swelling and Reports wheezing Pulmonology Exam Inpatient Vital signs and Labs for Last 24 Hours: Temp Pulse Resp BP Pulse Ox O2 Del Method O2 Flow Rate 98.5 F 86 18 145/70 H 91 L Nasal Cannula 4 12/30/23 08:00 12/30/23 08:00 12/30/23 08:00 12/30/23 08:00 12/30/23 08:00 12/30/23 08:00 12/30/23 08:00 Laboratory Results - last 24 hr 12/29/23 11:08: Troponin I < 0.01 12/29/23 11:46: VBG Lactic Acid 1.6 12/30/23 06:59: WBC 18.1 H D, RBC 3.82 L, Hgb 9.6 L D, Hct 30.6 L, MCV 80.1 L, M CH 25.0 L, MCHC 31.2 L, RDW 15.7, Plt Count 279, MPV 9.7, Neut % (Auto) 86.7 H, Lymph % (Auto) 10.1, [place] % (Auto) 3.0, Eos % (Auto) 0.0 L, Baso % (Auto) 0.2, [place] # (Auto) 15.7 H, Lymph # (Auto) 1.8, [place] # (Auto) 0.6, Eos # (Auto) 0.0, Baso # (Auto) 0.0, Total Counted 100, Neutrophils % (Manual) 84 H, Band Neutrophils % 2.0, Lymphocytes % (Manual) 12, Monocytes % (Manual) 2, Platelet Estimate Normal, Hypochromasia 1+, Microcytosis 1+, Ovalocytes 1+, Sodium 141, Potassium 3.9, Chloride 108 H, Carbon Dioxide 27, Anion Gap 9.9, BUN 22 H, C reatinine 0.90 D, Estimated Creat Clear 61, Estimated GFR 63, Est GFR ( Amer) 76 D, Glucose 100, Calcium 8.4, Magnesium 2.1, Total Bilirubin 0.4, AST 23, ALT 15, Alkaline Phosphatase 57, Total Protein 6.0 L, Albumin 3.5 D, Globulin 2.5, Albumin/Globulin Ratio 1.4 I & O for Labs for Last 24 Hours: Intake & Output 12/27/23 12/28/23 12/29/23 12/30/23 22:59 22:59 23:59 23:59 Intake Total 600 / 600 Output Total 0 / 0 Balance 600 / 600 Weight 151 lb 3 oz Constitutional: Present moderate distress Head: Present normocephalic and atraumatic ENT: Present normal exam, normal oropharynx and mucous membranes moist Neck: Present normal inspection and full ROM Respiratory: Present respiratory distress, rhonchi and able to speak in complete sentences; Absent wheezes Cardiac: Present S1/S2, Tachycardia and radial pulses present GI: Present soft and distention; Absent tenderness or guarding Rectal (female): Present deferred (female): Present deferred Skin: Present intact; Absent cyanosis or jaundice Neuro: Present alert, awake and oriented x 3 Extremities: Present normal inspection; Absent clubbing or cyanosis Psychiatric: Present normal affect and cooperative Meds Home Medications and Allergies Home Medications Medication Instructions Recorded Confirmed Type amlodipine 10 mg tablet 10 mg PO DAILY High Blood Pressure 12/29/23 12/29/23 History esomeprazole magnesium 40 mg 40 mg PO TID Acid Reflux 12/29/23 12/29/23 History capsule,delayed release furosemide 20 mg tablet 20 mg PO DAILYP PRN Fluid 12/29/23 12/29/23 History hydroxyzine HCl 10 mg tablet 10 mg PO HSP PRN Anxiety 12/29/23 12/29/23 History lisinopril 20 mg tablet 20 mg PO DAILY High Blood Pressure 12/29/23 12/29/23 History morphine 30 mg tablet,extended 30 mg PO Q12HP PRN Moderate Pain 12/29/23 12/29/23 History release (Scale Score 5-6) simvastatin 20 mg tablet 20 mg PO HS 12/29/23 12/29/23 History trazodone 50 mg tablet 100 mg PO HS Insomnia 12/29/23 12/29/23 History New Prescriptions to Start Prescriptions: Allergies Allergy/AdvReac Type Severity Reaction Status Date / Time Sulfa (Sulfonamide Allergy Verified 12/29/23 07:12 Antibiotics) Results Laboratory Findings 12/30/23 06:59 12/30/23 06:59 Abnormal lab findings: Abnormal Labs 12/29/23 12/29/23 12/29/23 07:00 07:05 07:30 WBC RBC Hgb 10.8 L Hct 35.8 L MCV MCH 24.7 L MCHC 30.3 L Neut % (Auto) 84.0 H Eos % (Auto) Neut # (Auto) 8.8 H Neutrophils % (Manual) VBG pO2 40.6 H VBG HCO3 21.5 L VBG Total CO2 22.7 L VBG O2 Saturation 70.2 H VBG Base Excess -4.3 L VBG Lactic Acid 2.9 H Chloride 110 H BUN 25 H Creatinine 1.20 H Estimated GFR 45 L Est GFR ( Amer) 55 L Glucose 104 H Total Protein 12/30/23 06:59 WBC 18.1 H D RBC 3.82 L Hgb 9.6 L D Hct 30.6 L MCV 80.1 L MCH 25.0 L MCHC 31.2 L Neut % (Auto) 86.7 H Eos % (Auto) 0.0 L Neut # (Auto) 15.7 H Neutrophils % (Manual) 84 H VBG pO2 VBG HCO3 VBG Total CO2 VBG O2 Saturation VBG Base Excess VBG Lactic Acid Chloride 108 H BUN 22 H Creatinine Estimated GFR Est GFR ( Amer) Glucose Total Protein 6.0 L Assessment and Plan *Assessment and plan (1) Acute hypoxemic respiratory failure: Status: Acute Category: Medical Code(s): J96.01 - Acute respiratory failure with hypoxia (2) Multifocal pneumonia: Status: Acute Category: Medical Code(s): J18.9 - Pneumonia, unspecified organism (3) Severe sepsis: Status: Acute Category: Medical Code(s): A41.9 - Sepsis, unspecified organism; R65.20 - Severe sepsis without septic shock Plan Ms. Antonio is a 63 -year-old female with reported history of COPD hypertension presented for worsening respiratory distress and subjective febrile episodes and pulmonary was called for further evaluation and management. Significant neutrophilic leukocytosis , worsening from admission. Afebrile since admission. Hemodynamically stable. CTA upon admission, dense right middle lobe and lower lobe consolidative changes along with left lower lobe airspace disease. Significant emphysematous changes noted. Motion artifact noted. Patient on admission was initiated on ceftriaxone and azithromycin. Patient examination no significant wheezing. In respiratory distress. Needing new oxygen requirements. Plan: Continue oxygen supplementation to maintain O2 saturation goal of 90 to 95% Abx - ceftriaxone azithromycin pending sputum culture results, will do sputum induction today. Recommend discontinuing vancomycin. Follow with nasal MRSA PCR. No need for steroids at this point of time Continue DuoNebs every 6 hours on a scheduled basis # Thank you for involving pulmonary in this patient care. Will continue to follow.
[2023-12-30] MEDS: PREGABALIN 50MG CAPSULE 150 MG PO ×3 (10:58→21:36)
[2023-12-30] MEDS: AMLODIPINE 10MG TABLET 10 MG PO (10:58)
[2023-12-30] MEDS: SODIUM CHLORIDE 3% 15ML NEB 3 ML IH (11:33)
--- NOTE | 2023-12-30 14:17 | P.PN_ITS ---
Subjective *Date: 12/30/23 *Time: 14:17 Interval history: Would like to have her pain regimen adjusted to her home regimen. Requesting her pregabalin, was not resumed yesterday. White cell count jumped this morning. On 4 L nasal cannula oxygen, still short of breath. Afebrile overnight. No nausea or vomiting. Discussed ambulation, patient requested a walker. Medical Exam Vital signs and Labs for Last 24 Hours: Vital Signs Temp Pulse Pulse Resp BP BP Pulse Ox 12/30/23 13:00 12/30/23 11:00 12/30/23 09:00 12/30/23 08:00 98.5 F 86 18 145/70 H 91 L 12/30/23 06:54 76 12/30/23 06:54 78 12/30/23 06:54 95 12/30/23 06:50 12/30/23 04:36 12/30/23 03:46 98.0 F 81 20 113/65 93 L 12/30/23 02:36 12/30/23 00:47 12/30/23 00:18 90 12/30/23 00:17 89 12/29/23 22:41 12/29/23 21:00 12/29/23 20:00 12/29/23 19:38 99.1 F 94 H 20 135/78 94 L 12/29/23 18:52 12/29/23 18:51 93 H 12/29/23 18:50 91 H 12/29/23 18:36 12/29/23 17:11 12/29/23 16:00 98.4 F 90 20 140/76 91 L 12/29/23 15:15 12/29/23 15:12 98.7 F 92 H 16 117/70 12/29/23 14:53 98.7 F 93 H 22 144/75 H 93 L 12/29/23 14:28 89 18 114/65 94 L O2 Del Method O2 Flow Rate 12/30/23 13:00 Nasal Cannula 4 12/30/23 11:00 Nasal Cannula 4 12/30/23 09:00 Nasal Cannula 4 12/30/23 08:00 Nasal Cannula 4 12/30/23 06:54 12/30/23 06:54 12/30/23 06:54 Nasal Cannula 4 12/30/23 06:50 Nasal Cannula 4.5 12/30/23 04:36 Nasal Cannula 4.5 12/30/23 03:46 Nasal Cannula 4.5 12/30/23 02:36 Nasal Cannula 4 12/30/23 00:47 Nasal Cannula 4 12/30/23 00:18 12/30/23 00:17 12/29/23 22:41 Nasal Cannula 4.5 12/29/23 21:00 Nasal Cannula 4.5 12/29/23 20:00 Nasal Cannula 4.5 12/29/23 19:38 Nasal Cannula 5 12/29/23 18:52 Nasal Cannula 4 12/29/23 18:51 12/29/23 18:50 12/29/23 18:36 Room Air 12/29/23 17:11 Nasal Cannula 6 12/29/23 16:00 Nasal Cannula 5 12/29/23 15:15 Nasal Cannula 6 12/29/23 15:12 12/29/23 14:53 Nasal Cannula 6 12/29/23 14:28 Intake and Output 12/29/23 12/30/23 12/30/23 23:59 07:59 15:59 Intake Total 270 / 630 360 / 1320 960 / 1320 Output Total 0 / 0 0 / 0 0 / 0 Balance 270 / 630 360 / 1320 960 / 1320 Intake: Intake, Oral Amount 270 / 630 360 / 1070 710 / 1070 Intake, Total IV Amount 250 / 250 Vancomycin HCl 1,000 mg In 0.9 250 / 250 % Sodium Chloride 250 ml @ 125 mls/hr IV Q24H [facility] Rx#:[id number] Output: Output, Urine Amount 0 / 0 0 / 0 0 / 0 Other: Number of Unmeasured Voids 1 1 2 Weight 68.577 kg Patient Weight 12/30/23 23:59 Weight 68.577 kg Laboratory Results - last 24 hr 12/30/23 06:59: WBC 18.1 H D, RBC 3.82 L, Hgb 9.6 L D, Hct 30.6 L, MCV 80.1 L, MCH 25.0 L, MCHC 31.2 L, RDW 15.7, Plt Count 279, MPV 9.7, Neut % (Auto) 86.7 H, Lymph % (Auto) 10.1, [place] % (Auto) 3.0, Eos % (Auto) 0.0 L, Baso % (Auto) 0.2, Neut # (Auto) 15.7 H, Lymph # (Auto) 1.8, [place] # (Auto) 0.6, Eos # (Auto) 0.0, Baso # (Auto) 0.0, Total Counted 100, Neutrophils % (Manual) 84 H, Band Neutrophils % 2.0, Lymphocytes % (Manual) 12, Monocytes % (Manual) 2, Platelet Estimate Normal, Hypochromasia 1+, Microcytosis 1+, Ovalocytes 1+, Sodium 141, Potassium 3.9, Chloride 108 H, Carbon Dioxide 27, Anion Gap 9.9, BUN 22 H, Creatinine 0.90 D, Estimated Creat Clear 61, Estimated GFR 63, Est GFR ( Amer) 76 D, Glucose 100, Calcium 8.4, Magnesium 2.1, Total Bilirubin 0.4, AST 23, ALT 15, Alkaline Phosphatase 57, Total Protein 6.0 L, Albumin 3.5 D, Globulin 2.5, Albumin/Globulin Ratio 1.4 I & O for Labs for Last 24 Hours: Intake & Output 12/27/23 12/28/23 12/29/23 12/30/23 22:59 22:59 23:59 23:59 Intake Total 1320 / 1320 Output Total 0 / 0 Balance 1320 / 1320 Weight 68.577 kg Constitutional: Present mild distress, average body habitus, chronically ill appearing and cooperative Head: Present atraumatic and normocephalic Neck: Present normal inspection Respiratory: Present prolonged expiratory phase, wheezes, crackles and normal respiratory effort; Absent rhonchi Cardiac: Present Reg Rate and Rhythm GI: Present normal bowel sounds; Absent tenderness Extremities: Present normal inspection and full ROM Skin: Present intact; Absent erythema Neuro: Present Grossly Intact, alert, awake, oriented x 3 and moves all extremities Assessment and Plan *Assessment and plan (1) Severe sepsis: Status: Acute Category: Medical Code(s): A41.9 - Sepsis, unspecified organism; R65.20 - Severe sepsis without septic shock (2) Acute hypoxemic respiratory failure: Status: Acute Category: Medical Code(s): J96.01 - Acute respiratory failure with hypoxia (3) Multifocal pneumonia: Status: Acute Category: Medical Code(s): J18.9 - Pneumonia, unspecified organism (4) Chronically on opiate therapy: Status: Acute Category: Medical Code(s): 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 Workup in the ER concerning for new oxygen requirement of 6 L. Acute hypoxemic respiratory failure. Discussed case with ER physician, request admission for treatment of her severe sepsis, IV antibiotics, and further management. Medicine agreed to admit. Continue IV antibiotics with broad-spectrum vancomycin, ceftriaxone, azithromycin. Given location of pneumonia predominantly right lower lobe, concern for aspiration component. Will consult pulmonology to get them involved tomorrow morning. Nec essitating inpatient admission. PSI/port score 115 (Age 63, female, pulse 130 on presentation, pH 7.34, partial pressure oxygen 48, pleural effusion on chest imaging), class IV risk. Continues to require inpatient management. Slow to wean oxygen. Pulmonology assisting with care problems addressed as follows: Severe sepsis Acute hypoxemic respiratory failure Multifocal pneumonia - Discussed case with pulmonology, recommendations as follows: Continue supplemental oxygen for goal saturation greater 90%. Currently on 4 L. Continue ceftriaxone and azithromycin pending sputum cultures. Will attempt to induce sputum today. Discontinue vancomycin; Indication for steroids at this time; Continue DuoNebs every 6 hours scheduled -Blood cultures pending - White cell count jumped to 18 today. Consistent with infection. Repeat CBC, CMP, magnesium ordered for the morning.. -Tylenol 650 mg as needed every 6 hours for fever pain Mild DIANE, improving, creatinine 0.9, BUN 22. Tolerating p.o. liquids. Hypertension: Resume amlodipine 10 mg daily, lisinopril 20 mg daily. Holding simvastatin nightly. Holding diuretic GERD: Continue home PPI Anxiety: Continue home hydroxyzine nightly as needed and trazodone nightly for insomnia. Chronic pain and chronic opiate therapy -Continue home extended release morphine 30 mg twice daily. Monitor for sedation and respiratory suppression. -Resume pregabalin 150 mg 3 times a day Full code Regular diet Heparin subcu 3 times daily
--- NOTE | 2023-12-30 16:38 | PC.NURSE ---
A&OX4. PT HAS TOLERATED 4L NC WELL THROUGHOUT SHIFT. RESPIRATIONS REGULAR AND UNLABORED. LUNG SOUNDS DIMINISHED THROUGHOUT. UNABLE TO TITRATE O2 DOWN YET BUT WILL CONTINUE TO MONITOR AND TITRATE WHEN AVAILABLE. PT PROVIDED SPUTUM SAMPLE EARLIER IN THE SHIFT AND IT WAS SENT TO LAB. MRSA SWAB COLLECTED ON PT WELL AND SENT TO LAB. DAUGHTER HAS REMAINED AT BEDSIDE. ACTIVE BOWEL SOUNDS HEARD IN ALL 4 QUADRANTS. SOFT AND NONTENDER ABDOMEN. NO BM THUS FAR. VOIDS PER BSC WITH STANDBY ASSISTANCE. CLEAR YELLOW URINE NOTED. PT RECEIVED VANC ONCE THIS SHIFT AND TOLERATED WELL. +1 PULSES NOTED THROUGHOUT. NO EDEMA NOTED. MEDICATON LIST UPDATED IN SYSTEM FROM LIST DAUGHTER PROVIDED TODAY. PT HAS REPORTED A HEADACHE TWICE THIS SHIFT AND RECEIVED TYLENOL PER DEC. ON REASSESSMENT, PAIN HAD EASED. BED IN LOWEST POSITION. CALL LIGHT WITHIN REACH. NO QUESTIONS OR CONCERNS VOICED. VSS. HAND CHUTE BOSS EQUAL.
--- NOTE | 2023-12-30 18:43 | PC.NURSE ---
ROOM AIR SATURATION WAS IN THE UPPER 80'S WAS PLACED BACK ON 4L
[2023-12-30] MEDS: TRAZODONE 50MG TABLET 100 MG PO (21:36)
[2023-12-31] MEDS: HEPARIN SODIUM 5,000 UNIT/ML VIAL 5000 UNIT SQ ×4 (00:02→23:53)
[2023-12-31 04:00] VITALS: BMI 27.5; BMI 60.6
[2023-12-31] MEDS: CEFTRIAXONE 1 GM 1 GM in 0.9 % SODIUM CHLORIDE 50 ML IV (06:06)
[2023-12-31 06:19] VITALS: PULSE 72; PULSE 75; O2SAT 92
[2023-12-31] MEDS: IPRATROPIUM/ALBUTEROL 3 ML NEB IH ×3 (06:19→18:14)
[2023-12-31 07:31] LABS: Alanine Aminotransferase 10 U/L (12-78); Albumin Level 3.5 g/dl (3.5-5.0); Albumin/Globulin Ratio 1.5 (1.1-1.8); Alkaline Phosphatase 62 U/L (38-126); Anion Gap 12.9 mEq/L (5-15); Aspartate Amino Transferase 17 U/L (14-36); Bilirubin,Total 0.3 mg/dl (0.2-1.3); Blood Urea Nitrogen 21 mg/dl (7-17); Calcium 8.6 mg/dl (8.4-10.2); Carbon Dioxide 24 mmol/L (22.0-30.0); Chloride 111 mmol/L (98-107); Creatinine Clearance Estimated 62 mL/min (50-200); Estimated Glomerular Filt Rate 63 ml/min (>60); GFR (African American) 76 ML/MIN (>60); Globulin 2.4 g/dL (1.3-3.2); Glucose 92 mg/dl (74-100); Magnesium 2.3 mg/dl (1.6-2.3); Potassium 3.9 mmoL/L (3.5-5.1); Sodium 144 mmol/L (136-145); Total Protein,Serum 5.9 g/dl (6.3-8.2)
[2023-12-31 07:33] VITALS: BP 136/66; PULSE 108; RESP 12; TEMP 36.7; O2SAT 91
[2023-12-31 08:15] LABS: Basophils # 0.1 K/mm3 (0-0.2); Basophils % 0.4 % (0.1-2.0); Eosinophils # 0.1 K/mm3 (0.0-0.4); Eosinophils % 0.6 % (0.1-12.0); Hemoglobin 10.1 g/dL (12.2-16.2); Lymphocytes # 2.4 K/mm3 (0.7-4.5); Lymphocytes % 18.2 % (10-50); Mean Corpuscular HGB Conc 33.6 g/dL (31.8-35.4); Mean Corpuscular Volume 80.3 fl (81-99); Mean Platelet Volume 9.5 fl (7.4-10.4); Monocytes # 0.6 K/mm3 (0.1-1.0); Monocytes % 4.4 % (1.7-9.3); Neutrophils # 10.1 K/mm3 (1.8-7.8); Neutrophils % 76.4 % (37.0-80.0); Platelet Count 305 K/mm3 (142-424); Red Blood Count 3.73 M/mm3 (4.20-5.40); Red Cell Distribution Width 15.8 % (11.5-17.5); White Blood Count 13.2 K/mm3 (4.8-10.8)
[2023-12-31] MEDS: MORPHINE 30MG EXTENDED RELEASE TAB 30 MG PO ×2 (09:05→21:59)
[2023-12-31] MEDS: LISINOPRIL 20MG TABLET 20 MG PO (09:06)
[2023-12-31] MEDS: VANCOMYCIN HCL 1,000 MG in 0.9 % SODIUM CHLORIDE 250 ML 125 MG IV (09:07)
[2023-12-31] MEDS: PANTOPRAZOLE 40MG TABLET 40 MG PO ×2 (09:07→21:59)
[2023-12-31] MEDS: AMLODIPINE 10MG TABLET 10 MG PO (09:07)
--- NOTE | 2023-12-31 09:57 | P.PN_ITS ---
Subjective *Date: 12/31/23 *Time: 12:42 Interval history: No acute respiratory events overnight. Patient admits continued improvement in her respiratory symptoms. Pulmonology Exam Inpatient Vital signs and Labs for Last 24 Hours: Temp Pulse Resp BP Pulse Ox O2 Del Method O2 Flow Rate 98.0 F 108 H 12 136/66 91 L Nasal Cannula 4 12/31/23 07:33 12/31/23 07:33 12/31/23 07:33 12/31/23 07:33 12/31/23 07:33 12/31/23 07:33 12/31/23 07:33 Laboratory Results - last 24 hr 12/31/23 06:46: WBC 13.2 H D, RBC 3.73 L, Hgb 10.1 L, Hct 30.0 L, MCV 80.3 L, MCH 27.0, MCHC 33.6, RDW 15.8, Plt Count 305, MPV 9.5, Neut % (Auto) 76.4, Lymph % (Auto) 18.2, [place] % (Auto) 4.4, Eos % (Auto) 0.6, Baso % (Auto) 0.4, Neut # (Auto) 10.1 H, Lymph # (Auto) 2.4, [place] # (Auto) 0.6, Eos # (Auto) 0.1, Baso # (Auto) 0.1, Sodium 144, Potassium 3.9, Chloride 111 H, Carbon Dioxide 24, Anion Gap 12.9, BUN 21 H, Creatinine 0.90, Estimated Creat Clear 62, Estimated GFR 63, Est GFR ( Amer) 76, Glucose 92, Calcium 8.6, Magnesium 2.3, Total Bilirubin 0.3, AST 17 D, ALT 10 L D, Alkaline Phosphatase 62, Total Protein 5.9 L, Albumin 3.5, Globulin 2.4, Albumin/Globulin Ratio 1.5 I & O for Labs for Last 24 Hours: Intake & Output 12/28/23 12/29/23 12/30/23 12/31/23 22:59 23:59 23:59 23:59 Intake Total 1560 / 1560 Output Total 0 / 0 0 / 0 Balance 1560 / 1560 0 / 0 Weight 151 lb 3 oz 342 lb 6.046 oz Constitutional: Present moderate distress Head: Present normocephalic and atraumatic ENT: Present normal exam, normal oropharynx and mucous membranes moist Neck: Present normal inspection and full ROM Respiratory: Present respiratory distress, rhonchi and able to speak in complete sentences; Absent wheezes Cardiac: Present S1/S2, Tachycardia and radial pulses present GI: Present soft and distention; Absent tenderness or guarding Rectal (female): Present deferred (female): Present deferred Skin: Present intact; Absent cyanosis or jaundice Neuro: Present alert, awake and oriented x 3 Extremities: Present normal inspection; Absent clubbing or cyanosis Psychiatric: Present normal affect and cooperative Assessment and Plan *Assessment and plan (1) Acute hypoxemic respiratory failure: Status: Acute Category: Medical Code(s): J96.01 - Acute respiratory failure with hypoxia (2) Multifocal pneumonia: Status: Acute Category: Medical Code(s): J18.9 - Pneumonia, unspecified organism (3) Severe sepsis: Status: Acute Category: Medical Code(s): A41.9 - Sepsis, unspecified organism; R65.20 - Severe sepsis without septic shock Plan Ms. Antonio is a 63 -year-old female with reported history of COPD hypertension presented for worsening respiratory distress and subjective febrile episodes and pulmonary was called for further evaluation and management. Significant neutrophilic leukocytosis , worsening from admission. Afebrile since admission. Hemodynamically stable. CTA upon admission, dense right middle lobe and lower lobe consolidative changes along with left lower lobe airspace disease. Significant emphysematous changes noted. Motion artifact noted. Patient on admission was initiated on ceftriaxone and azithromycin. On initial examination no significant wheezing. In respiratory distress. Needing new oxygen requirements. Interval update: Improving leukocytosis. No acute respiratory events. Afebrile. No significant wheezing on auscultation. Plan: Continue oxygen supplementation to maintain O2 saturation goal of 90 to 95% continue to be needing 4 L nasal cannula oxygen supplementation Antibiotics can be weaned to ceftriaxone azithromycin pending sputum culture results, vancomycin can be discontinued from pulmonary standpoint. Follow with nasal MRSA PCR. No need for steroids at this point of time Trelegy 100 inhaler along with DuoNebs every 6 hours on as-needed basis # Thank you for involving pulmonary in this patient care. Will continue to follow.
[2023-12-31] MEDS: PREGABALIN 50MG CAPSULE 150 MG PO ×3 (10:38→21:59)
[2023-12-31 11:06] VITALS: PULSE 72; PULSE 77
[2023-12-31 15:08] VITALS: BP 122/73; PULSE 100; RESP 20; TEMP 37.2; O2SAT 94
--- NOTE | 2023-12-31 18:11 | EXP.PN ---
Subjective *Date: 12/31/23 *Time: 18:11 Interval history: seen at bedside, denied CP, fever. no acute events overnight Exam Data for Last 24 hours Vital signs and Labs for Last 24 Hours: Temp Pulse Resp BP Pulse Ox O2 Del Method O2 Flow Rate 98.9 F 100 H 20 122/73 94 L Nasal Cannula 2 12/31/23 15:08 12/31/23 15:08 12/31/23 15:08 12/31/23 15:08 12/31/23 15:08 12/31/23 15:08 12/31/23 15:08 Laboratory Results - last 24 hr 12/31/23 06:46: WBC 13.2 H D, RBC 3.73 L, Hgb 10.1 L, Hct 30.0 L, MCV 80.3 L, MCH 27.0, MCHC 33.6, RDW 15.8, Plt Count 305, MPV 9.5, Neut % (Auto) 76.4, Lymph % (Auto) 18.2, [place] % (Auto) 4.4, Eos % (Auto) 0.6, Baso % (Auto) 0.4, Neut # (Auto) 10.1 H, Lymph # (Auto) 2.4, [place] # (Auto) 0.6, Eos # (Auto) 0.1, Baso # (Auto) 0.1, Sodium 144, Potassium 3.9, Chloride 111 H, Carbon Dioxide 24, Anion Gap 12.9, BUN 21 H, Creatinine 0.90, Estimated Creat Clear 62, Estimated GFR 63, Est GFR ( Amer) 76, Glucose 92, Calcium 8.6, Magnesium 2.3, Total Bilirubin 0.3, AST 17 D, ALT 10 L D, Alkaline Phosphatase 62, Total Protein 5.9 L, Albumin 3.5, Globulin 2.4, Albumin/Globulin Ratio 1.5 I & O for Last 24 hours: Intake & Output 12/28/23 12/29/23 12/30/23 12/31/23 22:59 23:59 23:59 23:59 Intake Total 1560 / 1560 500 / 500 Output Total 0 / 0 0 / 0 Balance 1560 / 1560 500 / 500 Weight 68.577 kg 155.3 kg Constitutional Constitutional: no acute distress *Routine HEENT Exam Head: Present normocephalic Eye: Present EOMI and PERRL ENT: Present mucous membranes moist *Routine Neck Exam Neck: Present supple; Absent lymphadenopathy *Routine Respiratory Exam Respiratory: Present CTA bilaterally *Routine Cardiovascular Exam Cardiovascular: Present RRR *Routine Abdominal Exam Abdominal: Present soft and normoactive bowel sounds; Absent tenderness *Routine Extremities Exam Extremities: Absent cyanosis, clubbing or edema *Routine Skin Exam Skin: Present warm; Absent rash *Routine Neurological Exam Neurological: Present alert and oriented X3 Assessment and Plan *Assessment and plan (1) Severe sepsis: Status: Acute Category: Medical Code(s): A41.9 - Sepsis, unspecified organism; R65.20 - Severe sepsis without septic shock (2) Acute hypoxemic respiratory failure: Status: Acute Category: Medical Code(s): J96.01 - Acute respiratory failure with hypoxia (3) Multifocal pneumonia: Status: Acute Category: Medical Code(s): J18.9 - Pneumonia, unspecified organism (4) Chronically on opiate therapy: Status: Acute Category: Medical Code(s): Z79.891 - senior living (current) use of opiate analgesic (5) Hypertension: Status: Chronic Category: Medical Code(s): I10 - Essential (primary) hypertension (6) Emphysema/COPD: Status: Chronic Category: Medical Code(s): J43.9 - Emphysema, unspecified Plan 63-year-old female meeting severe sepsis criteria with tachypnea, tachycardia, chest imaging with multifocal pneumonia. Workup in the ER concerning for new oxygen requirement of 6 L. Acute hypoxemic respiratory failure. Severe sepsis Acute hypoxemic respiratory failure Multifocal pneumonia - Continue supplemental oxygen for goal saturation greater 90%. Currently on 4 L. Continue ceftriaxone and azithromycin pending sputum cultures. Continue DuoNebs every 6 hours scheduled -Blood cultures pending -Tylenol 650 mg as needed every 6 hours for fever pain Mild DIANE, improving, monitor Hypertension: Resume amlodipine 10 mg daily, lisinopril 20 mg daily. Holding simvastatin nightly. Holding diuretic GERD: Continue home PPI Anxiety: Continue home hydroxyzine nightly as needed and trazodone nightly for insomnia. Chronic pain and chronic opiate therapy -Continue home extended release morphine 30 mg twice daily. Monitor for sedation and respiratory suppression. -Resume pregabalin 150 mg 3 times a day Full code Regular diet Heparin subcu 3 times daily awaiting placement, landno MAURICIO tmorrow, continue IV ABx
[2023-12-31 19:03] VITALS: PULSE 96; PULSE 98; O2SAT 93
--- NOTE | 2023-12-31 19:04 | PC.NURSE ---
ROOM AIR SAT PT DROPPED TO 88% ON ROOM AIR. PLACED PT BACK ON 2L NC WITH A SAT OF 91%
--- NOTE | 2023-12-31 19:18 | INFXCTL.NOTE ---
PAtient a&ox4 and vss and patient tolerating IV abx.
[2023-12-31 20:00] VITALS: BP 134/72; PULSE 102; RESP 18; TEMP 37; O2SAT 93
[2023-12-31] MEDS: SENNOSIDES 8.6MG/DOCUSATE 50MG TABLET 1 TAB PO (21:59)
[2023-12-31] MEDS: TRAZODONE 50MG TABLET 100 MG PO (21:59)
[2024-01-01] VITALS (7 sets, daily range): BP systolic 123–144; BP diastolic 74–92; PULSE 83–100; RESP 18–20; TEMP 36.6–36.9; O2SAT 88–97; BMI 26.3
[2024-01-01] MEDS: IPRATROPIUM/ALBUTEROL 3 ML NEB IH ×3 (00:04→11:22)
[2024-01-01] MEDS: CEFTRIAXONE 1 GM 1 GM in 0.9 % SODIUM CHLORIDE 50 ML IV (06:58)
[2024-01-01 07:28] LABS: Alanine Aminotransferase 10 U/L (12-78); Albumin Level 3.2 g/dl (3.5-5.0); Albumin/Globulin Ratio 1.3 (1.1-1.8); Alkaline Phosphatase 60 U/L (38-126); Anion Gap 8.7 mEq/L (5-15); Aspartate Amino Transferase 17 U/L (14-36); Bilirubin,Total 0.3 mg/dl (0.2-1.3); Blood Urea Nitrogen 21 mg/dl (7-17); Calcium 8.4 mg/dl (8.4-10.2); Carbon Dioxide 25 mmol/L (22.0-30.0); Chloride 111 mmol/L (98-107); Creatinine Clearance Estimated 60 mL/min (50-200); Estimated Glomerular Filt Rate 63 ml/min (>60); GFR (African American) 76 ML/MIN (>60); Globulin 2.5 g/dL (1.3-3.2); Glucose 91 mg/dl (74-100); Potassium 3.7 mmoL/L (3.5-5.1); Sodium 141 mmol/L (136-145); Total Protein,Serum 5.7 g/dl (6.3-8.2)
[2024-01-01] MEDS: ACETAMINOPHEN 325MG TAB 650 MG PO (07:56)
--- NOTE | 2024-01-01 07:56 | EXP.PHA.PN ---
Subjective *Date: 01/01/24 *Time: 07:56 Medical Exam Vital signs and Labs for Last 24 Hours: Vital Signs Temp Pulse Pulse Resp BP Pulse Ox O2 Del Method 01/01/24 07:50 98.5 F 100 H 20 144/88 H 95 Nasal Cannula 01/01/24 07:00 Nasal Cannula 01/01/24 06:09 90 01/01/24 06:09 86 01/01/24 06:09 91 L Nasal Cannula 01/01/24 04:00 98 F 89 18 123/74 92 L Nasal Cannula 01/01/24 03:00 Nasal Cannula 01/01/24 01:00 Nasal Cannula 01/01/24 00:23 96 H 01/01/24 00:23 94 H 12/31/23 22:54 Nasal Cannula 12/31/23 21:00 Nasal Cannula 12/31/23 20:00 Nasal Cannula 12/31/23 20:00 98.6 F 102 H 18 134/72 93 L Nasal Cannula 12/31/23 19:03 98 H 12/31/23 19:03 96 H 12/31/23 19:03 93 L Nasal Cannula 12/31/23 15:08 98.9 F 100 H 20 122/73 94 L Nasal Cannula 12/31/23 11:06 72 12/31/23 11:06 77 O2 Flow Rate 01/01/24 07:50 3 01/01/24 07:00 2 01/01/24 06:09 01/01/24 06:09 01/01/24 06:09 4 01/01/24 04:00 2 01/01/24 03:00 2 01/01/24 01:00 2 01/01/24 00:23 01/01/24 00:23 12/31/23 22:54 2 12/31/23 21:00 2 12/31/23 20:00 2 12/31/23 20:00 2 12/31/23 19:03 12/31/23 19:03 12/31/23 19:03 2 12/31/23 15:08 2 12/31/23 11:06 12/31/23 11:06 Intake and Output 12/31/23 12/31/23 01/01/24 15:59 23:59 07:59 Intake Total 500 / 1130 390 / 1130 240 / 240 Output Total 0 / 0 0 / 0 650 / 650 Balance 500 / 1130 390 / 1130 -410 / -410 Intake: Intake, Oral Amount 500 / 1130 390 / 1130 240 / 240 Output: Output, Urine Amount 0 / 0 0 / 0 650 / 650 Other: Number of Voids 3 Number of Unmeasured Voids 1 1 3 Weight 67.449 kg Patient Weight 01/01/24 23:59 Weight 67.449 kg Laboratory Results - last 24 hr 12/31/23 06:46: WBC 13.2 H D, RBC 3.73 L, Hgb 10.1 L, Hct 30.0 L, MCV 80.3 L, MCH 27.0, MCHC 33.6, RDW 15.8, Plt Count 305, MPV 9.5, Neut % (Auto) 76.4, Lymph % (Auto) 18.2, [place] % (Auto) 4.4, Eos % (Auto) 0.6, Baso % (Auto) 0.4, Neut # (Auto) 10.1 H, Lymph # (Auto) 2.4, [place] # (Auto) 0.6, Eos # (Auto) 0.1, Baso # (Auto) 0.1 01/01/24 07:00: Sodium 141, Potassium 3.7, Chloride 111 H, Carbon Dioxide 25, Anion Gap 8.7, BUN 21 H, Creatinine 0.90, Estimated Creat Clear 60, Estimated GFR 63, Est GFR ( Amer) 76, Glucose 91, Calcium 8.4, Total Bilirubin 0.3, AST 17, ALT 10 L, Alkaline Phosphatase 60, Total Protein 5.7 L, Albumin 3.2 L, Globulin 2.5, Albumin/Globulin Ratio 1.3 I & O for Labs for Last 24 Hours: Intake & Output 12/29/23 12/30/23 12/31/23 01/01/24 23:59 23:59 23:59 23:59 Intake Total 1560 / 1560 890 / 1130 240 / 240 Output Total 0 / 0 0 / 0 650 / 650 Balance 1560 / 1560 890 / 1130 -410 / -410 Weight 68.577 kg 155.3 kg 67.449 kg Microbiology Reports for the Last 24 Hours: Microbiology 12/29/23 07:45 Blood Blood Culture - Preliminary 12/29/23 07:52 Blood Blood Culture - Preliminary The patient's infection will respond to the chosen ABx?: Yes Is the patient receiving the right drug, dose, and route?: Yes Could a more targeted ABx be ordered?: No (BLOOD CULTURE SHOWS NO GROWTH AT 24 HOURS AND SPUTUM CULTURE STILL PENDING)
[2024-01-01 08:03] LABS: Vancomycin,Trough 9.5 ug/mL (5.0-10.0)
[2024-01-01] MEDS: SENNOSIDES 8.6MG/DOCUSATE 50MG TABLET 1 TAB PO (08:24)
[2024-01-01] MEDS: PANTOPRAZOLE 40MG TABLET 40 MG PO (08:25)
[2024-01-01] MEDS: LISINOPRIL 20MG TABLET 20 MG PO (08:25)
[2024-01-01] MEDS: AMLODIPINE 10MG TABLET 10 MG PO (08:25)
[2024-01-01] MEDS: MORPHINE 30MG EXTENDED RELEASE TAB 30 MG PO (08:25)
[2024-01-01] MEDS: PREGABALIN 50MG CAPSULE 150 MG PO ×2 (08:25→13:12)
[2024-01-01] MEDS: HEPARIN SODIUM 5,000 UNIT/ML VIAL 5000 UNIT SQ (08:26)
[2024-01-01] MEDS: POLYETHYLENE GLYCOL 3350 17 GM PACKET PO (08:27)
[2024-01-01] MEDS: VANCOMYCIN/WATER FOR INJ (PEG) 1.25 GM/250 ML PIGGYBACK IV (08:28)
--- NOTE | 2024-01-01 09:37 | P.PN_ITS ---
Subjective *Date: 01/01/24 *Time: 12:06 Interval history: No acute respiratory vents overnight. Patient admits continued improvement in her respiratory status. Pulmonology Exam Inpatient Vital signs and Labs for Last 24 Hours: Temp Pulse Resp BP Pulse Ox O2 Del Method O2 Flow Rate 98.5 F 100 H 20 144/88 H 95 Nasal Cannula 3 01/01/24 07:50 01/01/24 07:50 01/01/24 07:50 01/01/24 07:50 01/01/24 07:50 01/01/24 07:50 01/01/24 07:50 Laboratory Results - last 24 hr 01/01/24 07:00: Sodium 141, Potassium 3.7, Chloride 111 H, Carbon Dioxide 25, Anion Gap 8.7, BUN 21 H, Creatinine 0.90, Estimated Creat Clear 60, Estimated GFR 63, Est GFR ( Amer) 76, Glucose 91, Calcium 8.4, Total Bilirubin 0.3, AST 17, ALT 10 L, Alkaline Phosphatase 60, Total Protein 5.7 L, Albumin 3.2 L, Globulin 2.5, Albumin/Globulin Ratio 1.3, Vancomycin Trough 9.5 I & O for Labs for Last 24 Hours: Intake & Output 12/29/23 12/30/23 12/31/23 01/01/24 23:59 23:59 23:59 23:59 Intake Total 1560 / 1560 890 / 1130 490 / 490 Output Total 0 / 0 0 / 0 650 / 650 Balance 1560 / 1560 890 / 1130 -160 / -160 Weight 151 lb 3 oz 342 lb 6.046 oz 148 lb 11.2 oz Microbiology Reports for the Last 24 Hours: Microbiology 12/29/23 07:45 Blood Blood Culture - Preliminary 12/29/23 07:52 Blood Blood Culture - Preliminary Constitutional: Present moderate distress Head: Present normocephalic and atraumatic ENT: Present normal exam, normal oropharynx and mucous membranes moist Neck: Present normal inspection and full ROM Respiratory: Present respiratory distress, rhonchi and able to speak in complete sentences; Absent wheezes Cardiac: Present S1/S2, Tachycardia and radial pulses present GI: Present soft and distention; Absent tenderness or guarding Rectal (female): Present deferred (female): Present deferred Skin: Present intact; Absent cyanosis or jaundice Neuro: Present alert, awake and oriented x 3 Extremities: Present normal inspection; Absent clubbing or cyanosis Psychiatric: Present normal affect and cooperative Assessment and Plan *Assessment and plan (1) Acute hypoxemic respiratory failure: Status: Acute Category: Medical Code(s): J96.01 - Acute respiratory failure with hypoxia (2) Multifocal pneumonia: Status: Acute Category: Medical Code(s): J18.9 - Pneumonia, unspecified organism (3) Severe sepsis: Status: Acute Category: Medical Code(s): A41.9 - Sepsis, unspecified organism; R65.20 - Severe sepsis without septic shock Plan Ms. Antonio is a 63 -year-old female with reported history of COPD hypertension presented for worsening respiratory distress and subjective febrile episodes and pulmonary was called for further evaluation and management. Significant neutrophilic leukocytosis , worsening from admission. Afebrile since admission. Hemodynamically stable. CTA upon admission, dense right middle lobe and lower lobe consolidative changes along with left lower lobe airspace disease. Significant emphysematous changes noted. Motion artifact noted. Patient on admission was initiated on ceftriaxone and azithromycin. On initial examination no significant wheezing. In respiratory distress. Needing new oxygen requirements. Interval update: No acute respiratory events overnight. No labs to review. Improving oxygen requirements. Weaned to 2 L this morning saturating 92%. Patient still receiving vancomycin and ceftriaxone. Unclear the reasoning behind patient continue to receive vancomycin at this point of time. From pulmonary standpoint antibiotics can be discontinued prior to discharge. Will defer rest of the antibiotic management to primary team. Plan: Continue oxygen supplementation to maintain O2 saturation goal of 90 to 95% continue to be needing 2 L nasal cannula oxygen supplementation Antibiotics can be weaned to cefdinir upon discharge to complete a total of 7- day course from pulmonary standpoint. Sputum cultures and nasal MRSA PCR pendi ng upon discharge. No need for steroids at this point of time Trelegy 100 inhaler along with DuoNebs every 6 hours on as-needed basis # Thank you for involving pulmonary in this patient care. Will follow the patient in pulmonary clinic 5 days post discharge.
--- NOTE | 2024-01-01 09:46 | PC.NURSE ---
pt is 88% on room air. 2lnc reapplied. o2 saturation increased to 91%.
--- NOTE | 2024-01-01 11:57 | XR_ITS ---
FINAL REPORT CLINICAL HISTORY: PNM COMPARISON: None FINDINGS: A single portable view of the chest was obtained. The heart size and pulmonary vascularity are within normal limits. The mediastinum is within normal limits. Bibasilar opacities are present, larger on the right than on the left, consistent with pneumonia. Postoperative changes in the cervicothoracic spine are noted. IMPRESSION: Bibasilar opacities, larger on the right than on the left, consistent with pneumonia. Reviewed, Interpreted and Dictated by Ramesh Mercado III, MD Transcribed by Jessica Ferrari Authenticated and [facility]
[2024-01-01 13:27] LABS: Vancomycin,Peak 25.5 ug/ml (11-39)
--- NOTE | 2024-01-01 14:02 | P.DS_ITS ---
General Admission date:: 12/29/23 Discharge date: 01/01/24 HPI HPI HPI: Ms. Antonio is a 63-year-old female with history of hypertension, chronic back pain, chronic opiate therapy and COPD.. She presented to the ER with complaint of shortness of breath and fever. States that she is post cervical spinal surgery in August and has surgery on thoracic and lumbar spine pending for January. She was worried about her breathing and fever and came into the ER for evaluation because she wants to be healthy for surgery next month. States that she has had an intermittent cough for the past week or so. Denies any nausea or vomiting. Denies any chest pain. Does not use oxygen at home. Reports that things worsened acutely however when she woke up this morning with severe shortness of breath and noted to have a fever at home to 100.4. On evaluation in the ER, found to be hypoxic necessitating supplemental oxygen. Currently on 4 to 5 L. Also found to be tachycardic, tachypneic, labs concerning for elevate d white cell count. Chest imaging with finding of right lower lobe consolidation and airspace disease. Initiated on antibiotics for community- acquired pneumonia. Medicine consulted for admission and further management. For the time of my evaluation, patient is feeling somewhat better. She has had fluids and IV antibiotics. Cultures were obtained. Sats are in the low 90s on 5 L. Alert and oriented x 4. Pain stable. Denies any weakness or dizziness. Hospital Course Hospital Course Hospital Course: Patient was seen and evaluated at the bedside on the day of discharge. Patient wishes to be discharged. All patient questions were answered and patient was given time to ask questions. Patient was discharged in stable condition. Patient understands that she can return to ER in case of any sudden changes in health. Total time spent on DC - 38 mins 63-year-old female meeting severe sepsis criteria with tachypnea, tachycardia, chest imaging with multifocal pneumonia. Workup in the ER concerning for new oxygen requirement of 6 L. Acute hypoxemic respiratory failure - improved, will need 2L NC oxygen at home, O2 sat on RA 88% Severe sepsis - improved, DC on cefdinir for 7 days Acute hypoxemic respiratory failure Multifocal pneumonia - improved Mild DIANE, improved Hypertension: Resume amlodipine 10 mg daily, lisinopril 20 mg daily. Full code Regular diet Heparin subcu 3 times daily Exam Data for Last 24 hours Vital signs and Labs for Last 24 Hours: Temp Pulse Resp BP Pulse Ox O2 Del Method O2 Flow Rate 98.5 F 83 20 144/88 H 93 L Nasal Cannula 2 01/01/24 07:50 01/01/24 11:22 01/01/24 07:50 01/01/24 07:50 01/01/24 11:22 01/01/24 13:00 01/01/24 13:00 Laboratory Results - last 24 hr 01/01/24 07:00: Sodium 141, Potassium 3.7, Chloride 111 H, Carbon Dioxide 25, Anion Gap 8.7, BUN 21 H, Creatinine 0.90, Estimated Creat Clear 60, Estimated GFR 63, Est GFR ( Amer) 76, Glucose 91, Calcium 8.4, Total Bilirubin 0.3, AST 17, ALT 10 L, Alkaline Phosphatase 60, Total Protein 5.7 L, Albumin 3.2 L, Globulin 2.5, Albumin/Globulin Ratio 1.3, Vancomycin Trough 9.5 01/01/24 12:55: Vancomycin Peak 25.5 I & O for Last 24 hours: Intake & Output 12/29/23 12/30/23 12/31/23 01/01/24 23:59 23:59 23:59 23:59 Intake Total 1560 / 1560 890 / 1130 850 / 850 Output Total 0 / 0 0 / 0 650 / 650 Balance 1560 / 1560 890 / 1130 200 / 200 Weight 68.577 kg 155.3 kg 67.449 kg Microbiology Reports for the Last 24 Hours: Microbiology 12/29/23 07:45 Blood Blood Culture - Preliminary 12/29/23 07:52 Blood Blood Culture - Preliminary Constitutional Constitutional: no acute distress *Routine HEENT Exam Head: Present normocephalic Eye: Present EOMI and PERRL ENT: Present mucous membranes moist *Routine Neck Exam Neck: Present supple; Absent lymphadenopathy *Routine Respiratory Exam Respiratory: Present diminished air movement Comments: typical emphysema findings *Routine Cardiovascular Exam Cardiovascular: Present RRR *Routine Abdominal Exam Abdominal: Present soft and normoactive bowel sounds; Absent tenderness *Routine Extremities Exam Extremities: Absent cyanosis, clubbing or edema *Routine Skin Exam Skin: Present warm; Absent rash *Routine Neurological Exam Neurological: Present alert and oriented X3 Results Data Completed and Pending Labs on day of discharge: Labs from last 24 hours 01/01/24 01/01/24 12:55 07:00 Sodium 141 Potassium 3.7 Chloride 111 H Carbon Dioxide 25 Anion Gap 8.7 BUN 21 H Creatinine 0.90 Estimated Creat Clear 60 Estimated GFR 63 Est GFR ( Amer) 76 Glucose 91 Calcium 8.4 Total Bilirubin 0.3 AST 17 ALT 10 L Alkaline Phosphatase 60 Total Protein 5.7 L Albumin 3.2 L Globulin 2.5 Albumin/Globulin Ratio 1.3 Vancomycin Peak 25.5 Vancomycin Trough 9.5 Preliminary micro results at discharge 12/29/23 07:45 Blood Culture - Preliminary Blood 12/29/23 07:52 Blood Culture - Preliminary Blood DS: Diagnosis Discharge Diagnosis (1) Acute hypoxemic respiratory failure: Status: Acute Code(s): J96.01 - Acute respiratory failure with hypoxia (2) Multifocal pneumonia: Status: Acute Code(s): J18.9 - Pneumonia, unspecified organism (3) Severe sepsis: Status: Acute Code(s): A41.9 - Sepsis, unspecified organism; R65.20 - Severe sepsis without septic shock Meds Home Medications and Allergies Home Medications Medication Instructions Recorded Confirmed Type amlodipine 10 mg tablet 10 mg PO DAILY High Blood Pressure 12/29/23 12/30/23 History esomeprazole magnesium 40 mg 40 mg PO TID Acid Reflux 12/29/23 12/30/23 History capsule,delayed release furosemide 20 mg tablet 20 mg PO DAILYP PRN Fluid 12/29/23 12/30/23 History hydroxyzine HCl 10 mg tablet 10 mg PO HSP PRN Anxiety 12/29/23 12/30/23 History lisinopril 20 mg tablet 20 mg PO DAILY High Blood Pressure 12/29/23 12/30/23 History morphine 30 mg tablet,extended 30 mg PO Q12HP PRN Moderate Pain 12/29/23 12/30/23 History release (Scale Score 5-6) simvastatin 20 mg tablet 20 mg PO HS 12/29/23 12/30/23 History trazodone 50 mg tablet 100 mg PO HS Insomnia 12/29/23 12/30/23 History budesonide-formoterol HFA 160 2 puff inhalation BID 12/30/23 12/30/23 History mcg-4.5 mcg/actuation aerosol inhaler (Symbicort) fluticasone propionate 50 1 spray intranasal DAILY 12/30/23 12/30/23 History mcg/actuation nasal spray,suspension (Flonase Allergy Relief) mometasone-formoterol HFA 200 2 puff inhalation BID 12/30/23 12/30/23 History mcg-5 mcg/actuation aerosol inhaler (Dulera) morphine 30 mg tablet,extended 30 mg PO Q12H 12/30/23 12/30/23 History release ondansetron 4 mg disintegrating 4 mg PO Q8H PRN Nausea 12/30/23 12/30/23 History tablet pregabalin 150 mg capsule (Lyrica) 150 mg PO TID 12/30/23 12/30/23 History tiotropium bromide 18 mcg capsule 1 cap inhalation DAILY 12/30/23 12/30/23 History with inhalation device tizanidine 6 mg capsule 6 mg PO TID PRN muscle spasms 12/30/23 12/30/23 History cefdinir 300 mg capsule 300 mg PO BID 7 days #14 caps 01/01/24 Rx New Prescriptions to Start Prescriptions: Khurram Godfrey Allergies Allergy/AdvReac Type Severity Reaction Status Date / Time Sulfa (Sulfonamide Allergy Verified 12/29/23 07:12 Antibiotics) Discharge Plan Disposition Patient Disposition: Home, Self-Care Condition: Good Discharge Order Discharge Orders: Discharge Order (Routine); Ordered 01/01/24 Ordered By: Khurram Johnson Follow up Plan Follow up with: Sarmad Botello [Primary Care Provider] - 2 weeks Isacc Diez MD [Physician] - 2 weeks Prescriptions/Medication Reconciliation: New cefdinir 300 mg capsule 300 mg PO BID 7 Days Qty: 14 0RF Continued trazodone 50 mg tablet 100 mg PO HS lisinopril 20 mg tablet 20 mg PO DAILY Patient Comments: TAKE 1 TABLET BY MOUTH EVERY DAY morphine 30 mg tablet extended release 30 mg PO Q12HP PRN (Reason: Moderate Pain (Scale Score 5-6)) amlodipine 10 mg tablet 10 mg PO DAILY esomeprazole magnesium 40 mg capsule,delayed release(DR/EC) 40 mg PO TID furosemide 20 mg tablet 20 mg PO DAILYP PRN (Reason: Fluid) Patient Comments: TAKE 1/2-1 TABLET BY MOUTH DAILY NEEDED FOR SWELLING. simvastatin 20 mg Tablet 20 mg PO HS hydroxyzine HCl 10 mg Tablet 10 mg PO HSP PRN (Reason: Anxiety) morphine 30 mg Tablet Extended Release 30 mg PO Q12H ondansetron 4 mg Tablet,Disintegrating 4 mg PO Q8H PRN (Reason: Nausea) fluticasone propionate [Flonase Allergy Relief] 50 mcg/actuation [place],Suspension 1 spray INTRANASAL DAILY Rx Instructions: administer into each nostril pregabalin [Lyrica] 150 mg Capsule 150 mg PO TID Dulera 200-5 mcg/actuation Hfa Aerosol Inhaler 2 puff INHALATION BID tiotropium bromide 18 mcg Capsule, W/Inhalation Device 1 cap INHALATION DAILY Rx Instructions: puncture 1 cap using device; one dose = 2 inhalations tizanidine 6 mg Capsule 6 mg PO TID PRN (Reason: muscle spasms) budesonide-formoterol [Symbicort] 160-4.5 mcg/actuation Hfa Aerosol Inhaler 2 puff INHALATION BID Other Ambulatory Orders: Home Medical Equipment (Routine) Location: None Selected Ordered By: Khurram Johnson Problem Reconciliation Problems Reviewed?: Yes Patient Discharge Instructions ACTIVITY: Ambulate as tolerated DIET: continue same diet Patient Instructions: Pneumonia-Adult, DI for Sepsis -- Adult, Respiratory Failure Providers Primary Care Provider: Sarmad Botello Admit Provider: Parth Lozano Attending Provider: Parth Lozano
--- NOTE | 2024-01-02 14:30 | CARE MANAGER ---
Contacted patient and daughter related to hospital discharge. She states she is doing well but they were under the impression she would be receiving a new inhaler for COPD. Appears Dr. Diez wanted the patient to have Trelegy inhaler, but was not ordered. Spoke with Dr. Johnson and pharmacy and it was called into [facility] in [place]. They denied any other questions or concerns. SANDRA Morales
== END 2024-01-01 16:52 | disposition home or self-care (01) | DRG 871 ==
LOC: ER 07:29 → 2ND 09:00
PROVIDERS: Internal Medicine; Admitting Provider Internal Medicine Adolescent Medicine; Emergency Provider Emergency Medicine; PCP Internal Medicine; Visit Provider Internal Medicine Adolescent Medicine
DX: A41.9 Sepsis, unspecified organism (principal); J96.01 Acute respiratory failure with hypoxia; N17.9 Acute kidney failure, unspecified; R65.20 Severe sepsis without septic shock; Z99.81 Dependence on supplemental oxygen; K21.9 Gastro-esophageal reflux disease without esophagitis; M54.9 Dorsalgia, unspecified; G89.29 Other chronic pain; I10 Essential (primary) hypertension; E78.5 Hyperlipidemia, unspecified; Z85.9 Personal history of malignant neoplasm, unspecified
CPT/HCPCS: 36415; 71045; 71275; 80053; 80202; 82803; 83605; 83735; 84484; 85007; 85025; 87040; 87070; 87081; 87205; 87636; 93005; 94640; 94760; 94761; 99291; J0456; J0696; J3370; Q9967

== ENCOUNTER 2024-01-13 14:14 | Outpatient (CLI) | payer MEDICARE, SELFPAY ==
--- NOTE | 2024-01-13 14:20 | XR_ITS ---
FINAL REPORT TECHNIQUE: Chest PA & Lateral CLINICAL HISTORY: PNM former smoker COMPARISON: 01/01/2024 FINDINGS: 2 views of the chest were performed. There is cervical fusion hardware in the lower cervical spine. There is posterior fusion hardware bridging the upper lumbar spine. The heart size is mildly enlarged. The mediastinum is within normal limits. There is no acute cardiopulmonary process. There are no pleural effusions. There is no pneumothorax. The bony thorax appears intact. IMPRESSION: No acute cardiopulmonary process. Reviewed, Interpreted and Dictated by Cecil Francis MD Transcribed by Gabrielle Greer Authenticated and . [facility]
== END 2024-01-13 23:59 ==
PROVIDERS: Visit Provider Internal Medicine Pulmonary Disease
DX: R06.02 Shortness of breath (principal)
CPT/HCPCS: 71046; 94618